=== PATIENT | female | born 1975 | race Two or more races ===

== ENCOUNTER 2018-07-11 05:51 | Inpatient (IN) | payer SELFPAY ==
[2018-07-11] VITALS (9 sets, daily range): BP systolic 104–126; BP diastolic 58–83
[~2018-07-11] VITALS: Ht 162.6 cm; Wt 81.6 kg
--- NOTE | 2018-07-11 06:27 | PHYS DOC ---
Past Medical History Past Medical History: No Pertinent History Past Surgical History: No Surgical History Smoking: Cigarettes (The patient is a nonsmoker.) Alcohol Use: None Adult General Chief Complaint Chief Complaint: ABDOMINAL PAIN HPI HPI Patient is a 42-year-old female who presents to the emergency department for evaluation of lower abdominal discomfort which began yesterday. She has had several episodes of nausea, but no vomiting. She has not had any diarrhea. The pain is described as a burning sensation, and it also feels as if she is constipated but she did have a normal bowel movement yesterday. There are no alleviating or exacerbating factors to her symptoms. She has not had any chest pain or shortness of breath, fevers, chills, vaginal bleeding or discharge, urinary frequency or dysuria. She has not had any chest pain or shortness of breath, numbness or weakness. She is due to start her menstrual cycle tomorrow. The patient is [place]-speaking and history was obtained via script manager language line. Review of Systems Review of Systems Constitutional: Denies fever or chills [] Eyes: Denies change in visual acuity, redness, or eye pain [] HENT: Denies nasal congestion or sore throat [] Respiratory: Denies cough or shortness of breath [] Cardiovascular: The patient denies any shortness of breath, chest pain, palpitations, or orthopnea [] GI: No additional information not addressed in HPI [] : Denies dysuria or hematuria [] Musculoskeletal: Denies back pain or joint pain [] Integument: Denies rash or skin lesions [] Neurologic: Denies headache, focal weakness or sensory changes [] Endocrine: Denies polyuria or polydipsia [] All other systems were reviewed and found to be within normal limits, except as documented in this note. Current Medications Current Medications Current Medications Medications (Trade) Dose Ordered Sig/Rolando Start Time Stop Time Status Last Admin Dose Admin Dextrose/Lactated Ringer's 1,000 ml @ 125 mls/hr 1X ONCE 07/11/18 08:30 07/11/18 16:29 Info (CONTRAST GIVEN -- Rx MONITORING) 1 each PRN DAILY PRN 07/11/18 06:45 07/13/18 06:44 Iohexol (Omnipaque 300 Mg/ml) 75 ml 1X ONCE 07/11/18 07:00 07/11/18 07:01 DC 07/11/18 07:35 75 ML Morphine Sulfate (Morphine Sulfate) 4 mg PRN Q2HR PRN 07/11/18 08:15 07/12/18 08:14 Ondansetron HCl (Zofran) 4 mg PRN Q8HRS PRN 07/11/18 08:15 07/12/18 08:14 Piperacillin Sod/ Tazobactam Sod 3.375 gm/Sodium Chloride 50 ml @ 100 mls/hr 1X ONCE 07/11/18 08:15 07/11/18 08:44 Sodium Chloride 1,000 ml @ 1,000 mls/hr Q1H 07/11/18 07:00 07/11/18 07:59 DC 07/11/18 06:54 1,000 MLS/HR Allergies Allergies Allergies Coded Allergies Type Severity Reaction Last Updated Verified No Known Drug Allergies 07/11/18 No Physical Exam Physical Exam PHYSICAL EXAM: CONSTITUTIONAL: Well developed, well nourished HEAD: normocephalic, atraumatic EENT: PERRL, EOMI. Conjunctivae normal color, sclerae non-icteric; moist mucous membranes. NECK: Supple, non-tender; no meningismus. LUNGS: Lungs CTA, breathing even and unlabored. Normal air movement. HEART: Regular rate and rhythm, no murmur CHEST: No deformity; non-tender ABDOMEN: The abdomen is soft, the upper abdomen is nontender, there is no focal right upper quadrant tenderness to palpation. There is diffuse tenderness to palpation to the lower abdomen, both midline, as well as in the lower quadrants bilaterally, as well as suprapubic tenderness, without rebound or guarding. Normal bowel sounds are present. no masses or bruits. EXTREM: Normal ROM; no deformity, no calf tenderness. Normal pulses palpable in all extremities. There is no pedal edema. SKIN: No rash; no diaphoresis NEURO: Alert; normal speech and cognition; CN's grossly intact; strength grossly intact without focal deficit. BACK: No CVA TTP. PELVIC EXAM: Normal external genitalia. There is a small amount of thin whitish vaginal discharge. The cervix appears mildly inflamed and friable. There is cervical motion tenderness, with diffuse adnexal /suprapubic tenderness to palpation, without focal tenderness or mass. There is also some abdominal tenderness higher to the suprapubic/pelvic area. Exam was performed in the presence of the patient's nurse, Carol. Current Patient Data Vital Signs Vital Signs Date Time Temp Pulse Resp B/P (MAP) Pulse Ox O2 Delivery O2 Flow Rate FiO2 07/11/18 06:53 20 97 Room Air 07/11/18 06:01 97.9 66 154/90 (111) 97.9 Lab Values Laboratory Tests Test 07/11/18 05:55 07/11/18 05:59 07/11/18 06:45 Urine Collection Type Unknown Urine Color Yellow Urine Clarity Clear Urine pH 7.0 Urine Specific [place] 1.015 Urine Protein Negative mg/dL (NEG-TRACE) Urine Glucose (UA) Negative mg/dL (NEG) Urine Ketones (Stick) Negative mg/dL (NEG) Urine Blood Trace (NEG) Urine Nitrite Negative (NEG) Urine Bilirubin Negative (NEG) Urine Urobilinogen Dipstick 0.2 mg/dL (0.2 mg/dL) Urine Leukocyte Esterase Moderate (NEG) Urine RBC 1-2 /HPF (0-2) Urine WBC 11-20 /HPF (0-4) Urine Squamous Epithelial Cells Many /LPF Urine Bacteria Moderate /HPF (0-FEW) Urine Mucus Slight /LPF POC Urine HCG, Qualitative Hcg negative (Negative) White Blood Count 18.0 x10^3/uL (4.0-11.0) H Red Blood Count 4.21 x10^6/uL (3.50-5.40) Hemoglobin 12.5 g/dL (12.0-15.5) Hematocrit 36.9 % (36.0-47.0) Mean Corpuscular Volume 88 fL (79-100) Mean Corpuscular Hemoglobin 30 pg (25-35) Mean Corpuscular Hemoglobin Concent 34 g/dL (31-37) Red Cell Distribution Width 14.0 % (11.5-14.5) Platelet Count 237 x10^3/uL (140-400) Neutrophils (%) (Auto) 78 % (31-73) H Lymphocytes (%) (Auto) 16 % (24-48) L Monocytes (%) (Auto) 4 % (0-9) Eosinophils (%) (Auto) 1 % (0-3) Basophils (%) (Auto) 1 % (0-3) Neutrophils # (Auto) 14.1 x10^3uL (1.8-7.7) H Lymphocytes # (Auto) 2.9 x10^3/uL (1.0-4.8) Monocytes # (Auto) 0.6 x10^3/uL (0.0-1.1) Eosinophils # (Auto) 0.2 x10^3/uL (0.0-0.7) Basophils # (Auto) 0.2 x10^3/uL (0.0-0.2) Segmented Neutrophils % 74 % (35-66) H Band Neutrophils % 2 % (0-9) Lymphocytes % 18 % (24-48) L Monocytes % 5 % (0-10) Eosinophils % 1 % (0-5) Platelet Estimate Adequate (ADEQUATE) Sodium Level 141 mmol/L (136-145) Potassium Level 3.6 mmol/L (3.5-5.1) Chloride Level 103 mmol/L (98-107) Carbon Dioxide Level 29 mmol/L (21-32) Anion Gap 9 (6-14) Blood Urea Nitrogen 8 mg/dL (7-20) Creatinine 0.7 mg/dL (0.6-1.0) Estimated GFR (Cockcroft-Gault) 92.2 BUN/Creatinine Ratio 11 (6-20) Glucose Level 107 mg/dL (70-99) H Calcium Level 9.1 mg/dL (8.5-10.1) Total Bilirubin 0.3 mg/dL (0.2-1.0) Aspartate Amino Transferase (AST) 13 U/L (15-37) L Alanine Aminotransferase (ALT) 27 U/L (14-59) Alkaline Phosphatase 67 U/L (46-116) Total Protein 7.6 g/dL (6.4-8.2) Albumin 3.4 g/dL (3.4-5.0) Albumin/Globulin Ratio 0.8 (1.0-1.7) L Lipase 116 U/L (73-393) Laboratory Tests 07/11/18 06:45 Laboratory Tests 07/11/18 06:45 Microbiology 07/11/18 Wet Prep - Final, Complete WET PREP Final YEAST NONE SEEN TRICHOMONAS NONE SEEN CLUE CELLS NONE SEEN WBCS FEW SQUAMOUS EPS FEW EKG EKG [] Radiology/Procedures Radiology/Procedures [PROCEDURE: CT ABD PELV W/ IV CONTRST ONLY CT of the abdomen and pelvis with contrast, 07/11/2018: HISTORY: Lower abdominal pain, nausea Multidetector CT imaging was performed following an IV bolus injection of iodinated contrast material. No oral contrast material was administered for this study No hepatic abnormality is detected. The gallbladder is unremarkable. The pancreas shows no abnormality. The spleen is of normal size. No renal abnormality is detected. The abdominal aorta is unremarkable. No abdominal or pelvic adenopathy is seen. The uterus is of normal size. The cecum is low-lying in the mid pelvis anteriorly just to the right of midline. A tubular structure extending superiorly from the cecum is compatible with a mildly dilated appendix. It measures 11 mm in width. It contains 2 small echogenic foci compatible with appendicoliths. There is minimal increased density in the periappendiceal fat. Early appendicitis is suspected. The right ureter extends into this region, however, this process does not appear to originate from the ureter. The bowel loops are not dilated. No free air or free fluid is evident in the abdomen or pelvis. IMPRESSION: Mildly dilated appendix containing appendicoliths with mild periappendiceal inflammation suggesting early appendicitis. ] Course & Med Decision Making Course & Med Decision Making Pertinent Labs and Imaging studies reviewed. (See chart for details) [8:10 AM: The patient's condition remained stable. I discussed the case with Dr. Vinson, who will admit the patient and take her to the operating room for definitive treatment.] The patient cannot receive blood products, secondary to her yazdanism beliefs, and this information has been related to the surgeon. Dragon Disclaimer Dragon Disclaimer This electronic medical record was generated, in whole or in part, using a voice recognition dictation system. Departure Departure Impression: Primary Impression: Acute appendicitis Disposition: ADMITTED INPATIENT Condition: STABLE Referrals: NO PCP (PCP) ENA MORGAN MD Jul 11, 2018 06:27
[2018-07-11 06:37] LABS: BILIRUBIN,URINE NEGATIVE (NEG); CLARITY,URINE CLEAR; COLOR,URINE YELLOW; NITRITE,URINE NEGATIVE (NEG); PROTEIN,URINE NEGATIVE (NEG-TRACE); UROBILINOGEN,URINE 0.2 mg/dL (0.2 mg/dL)
[2018-07-11] MEDS ORDERED: CONTRAST GIVEN. MC PRN (06:45)
[2018-07-11 06:48] LABS: BACTERIA,URINE MODERATE /HPF (0-FEW); SQUAMOUS EPITHELIAL CELL,UR MANY /LPF
[2018-07-11] MEDS: MORPHINE SULFATE 4 MG/ML VIAL. IV/SQ PRN ×2 (06:53→08:32)
[2018-07-11 06:56] LABS: BASO # 0.2 x10^3/uL (0.0-0.2); BASO % 1 % (0-3); EOS # 0.2 x10^3/uL (0.0-0.7); EOS % 1 % (0-3); HEMATOCRIT 36.9 % (36.0-47.0); HEMOGLOBIN 12.5 g/dL (12.0-15.5); LYMPH # 2.9 x10^3/uL (1.0-4.8); LYMPH % 16 % (24-48); MEAN CORPUSCULAR HEMOGLOBIN 30 pg (25-35); MEAN CORPUSCULAR HGB CONC 34 g/dL (31-37); MEAN CORPUSCULAR VOLUME 88 fL (79-100); MONO # 0.6 x10^3/uL (0.0-1.1); MONO % 4 % (0-9); NEUT # 14.1 x10^3uL (1.8-7.7); NEUT % 78 % (31-73); PLATELET COUNT 237 x10^3/uL (140-400); RED BLOOD COUNT 4.21 x10^6/uL (3.50-5.40)
[2018-07-11] MEDS ORDERED: IV NORMAL SALINE 1000ML BAG 1,000 ML IV SCH (07:00)
[2018-07-11] MEDS ORDERED: ONDANSETRON PF 4 MG/2 ML VIAL. IV ONE (07:00)
[2018-07-11] MEDS ORDERED: IOHEXOL 300 MG/ML 100ML VIAL. IV ONE (07:00)
[2018-07-11 07:12] LABS: CALCIUM 9.1 mg/dL (8.5-10.1); CREATININE 0.7 mg/dL (0.6-1.0); GFR 92.2; POTASSIUM 3.6 mmol/L (3.5-5.1)
[2018-07-11 07:18] LABS: ALBUMIN 3.4 g/dL (3.4-5.0); ALBUMIN/GLOBULIN RATIO 0.8 (1.0-1.7); TOTAL BILIRUBIN 0.3 mg/dL (0.2-1.0); TOTAL PROTEIN 7.6 g/dL (6.4-8.2)
--- NOTE | 2018-07-11 08:00 | RAD ---
CT of the abdomen and pelvis with contrast, 07/11/2018: HISTORY: Lower abdominal pain, nausea Multidetector CT imaging was performed following an IV bolus injection of iodinated contrast material. No oral contrast material was administered for this study No hepatic abnormality is detected. The gallbladder is unremarkable. The pancreas shows no abnormality. The spleen is of normal size. No renal abnormality is detected. The abdominal aorta is unremarkable. No abdominal or pelvic adenopathy is seen. The uterus is of normal size. The cecum is low-lying in the mid pelvis anteriorly just to the right of midline. A tubular structure extending superiorly from the cecum is compatible with a mildly dilated appendix. It measures 11 mm in width. It contains 2 small echogenic foci compatible with appendicoliths. There is minimal increased density in the periappendiceal fat. Early appendicitis is suspected. The right ureter extends into this region, however, this process does not appear to originate from the ureter. The bowel loops are not dilated. No free air or free fluid is evident in the abdomen or pelvis. IMPRESSION: Mildly dilated appendix containing appendicoliths with mild periappendiceal inflammation suggesting early appendicitis. PQRS Compliance Statement: One or more of the following individualized dose reduction techniques were utilized for this examination: 1. Automated exposure control 2. Adjustment of the mA and/or kV according to patient size 3. Use of iterative reconstruction technique Electronically signed by: Danny Pringle MD (07/11/2018 7:56 AM) [facility]
[2018-07-11 08:13] LABS: % BANDS 2 % (0-9); % EOS 1 % (0-5); % LYMPHS 18 % (24-48); % MONOS 5 % (0-10); % SEGS 74 % (35-66); PLT ESTIMATE ADEQUATE (ADEQUATE)
[2018-07-11] MEDS ORDERED: PIPERACILLIN/TAZOBACTAM 3.375 GM in IV NORMAL SALINE 50ML 50 ML IV ONE (08:15)
[2018-07-11] MEDS ORDERED: ONDANSETRON PF 4 MG/2 ML VIAL. IV PRN ×3 (08:15→15:45)
[2018-07-11] MEDS ORDERED: IV DEXTROSE 5%-LACT RINGERS 1,000 ML IV ONE (08:30)
[2018-07-11] MEDS: MORPHINE SULFATE 4 MG/ML VIAL. IV PRN ×3 (10:47→23:32)
[2018-07-11] MEDS: IV RINGERS,LACTATED 1000ML 1,000 ML IV SCH ×2 (10:51→16:00)
[2018-07-11] MEDS ORDERED: MORPHINE SULFATE 2 MG/ML VIAL. IV PRN ×2 (11:00→15:45)
[2018-07-11] MEDS ORDERED: PROCHLORPERAZINE 10 MG/2 ML VIAL. IV PRN (11:00)
[2018-07-11] MEDS ORDERED: fentaNYL PF VIAL 100 MCG/2 ML VIAL IV PRN ×2 (11:00)
[2018-07-11] MEDS ORDERED: LIDOCAINE 1% PF 2 ML VIAL. ID PRN (11:00)
[2018-07-11] MEDS ORDERED: HYDROmorphone 2 MG/ML VIAL IV PRN (11:00)
[2018-07-11] MEDS ORDERED: MIDAZOLAM HCL/PF 2 MG/2 ML VIAL. ONE (13:50)
[2018-07-11] MEDS ORDERED: SEVOFLURANE 61 TO 120 MINUTES. IH ONE (13:50)
[2018-07-11] MEDS ORDERED: fentaNYL PF VIAL 100 MCG/2 ML VIAL ONE ×2 (13:50→15:41)
[2018-07-11] MEDS ORDERED: GLYCOPYRROLATE 1 MG/5 ML VIAL. ONE ×2 (13:50)
[2018-07-11] MEDS ORDERED: LIDOCAINE 2% PF Vial for OR 5 ML VIAL. ONE (13:50)
[2018-07-11] MEDS ORDERED: KETOROLAC 30 MG/ML INJ FOR OR. INJ ONE (13:51)
[2018-07-11] MEDS ORDERED: DEXAMETHASONE SOD PHOS 20 MG/5 ML VIAL. ONE (13:51)
[2018-07-11] MEDS ORDERED: ONDANSETRON PF 4 MG/2 ML VIAL. ONE (13:51)
[2018-07-11] MEDS ORDERED: PROPOFOL 20 ML IV ONE (13:51)
[2018-07-11] MEDS ORDERED: BUPIVAC MPF-EPI 0.5%-1:200000 30 ML VIAL. ONE (14:09)
--- NOTE | 2018-07-11 14:16 | PDOC1 ---
History and Physical Date of Admission Date of Admission DATE: 07/11/18 TIME: 14:11 Identification/Chief Complaint Chief Complaint RLQ abd pain Source Source: Chart review, Patient History of Present Illness History of Present Illness 42 yo F with abd pain, localizing RLQ. No previous episode. Positive fever. Normal bowel function. Past Medical History Past Medical History pt is rastafari and elects for no blood products Cardiovascular: No pertinent hx Past Surgical History Past Surgical History: No pertinent history Family History Family History: No Significant Social History Smoke: No ALCOHOL: none Current Problem List Problem List Problems Medical Problems: (1) Acute appendicitis Status: Acute Current Medications Current Medications Current Medications Morphine Sulfate (Morphine Sulfate) 4 mg PRN Q15MIN PRN IV/SQ PAIN GREATER THAN 3/10 Last administered on 07/11/18at 08:32; Start 07/11/18 at 06:30; Stop 07/12/18 at 06:29 Sodium Chloride 1,000 ml @ 1,000 mls/hr Q1H IV Last administered on at 06:54; Start 07/11/18 at 07:00; Stop 07/11/18 at 07:59; Status DC Ondansetron HCl (Zofran) 4 mg 1X ONCE IV Last administered on 07/11/18at 06:53 ; Start 07/11/18 at 07:00; Stop 07/11/18 at 07:01; Status DC Iohexol (Omnipaque 300 Mg/ml) 75 ml 1X ONCE IV Last administered on at 07:35; Start 07/11/18 at 07:00; Stop 07/11/18 at 07:01; Status DC Info (CONTRAST GIVEN -- Rx MONITORING) 1 each PRN DAILY PRN MC SEE COMMENTS; Start 07/11/18 at 06:45; Stop 07/13/18 at 06:44 Piperacillin Sod/ Tazobactam Sod 3.375 gm/Sodium Chloride 50 ml @ 100 mls/hr 1X ONCE IV Last administered on 07/11/18at 08:28; Start 07/11/18 at 08:15; Stop 07/11/18 at 08:44; Status DC Ondansetron HCl (Zofran) 4 mg PRN Q8HRS PRN IV NAUSEA/VOMITING; Start at 08:15; Stop 07/12/18 at 08:14 Morphine Sulfate (Morphine Sulfate) 4 mg PRN Q2HR PRN IV PAIN Last administered on 07/11/18at 10:47; Start 07/11/18 at 08:15; Stop 07/12/18 at 08 :14 Dextrose/Lactated Ringer's 1,000 ml @ 125 mls/hr 1X ONCE IV Last administered on 07/11/18at 08:28; Start 07/11/18 at 08:30; Stop 07/11/18 at 16 :29 Piperacillin Sod/ Tazobactam Sod 3.375 gm/Dextrose 50 ml @ 100 mls/hr Q6HRS IV ; Start 07/11/18 at 12:00 Ondansetron HCl (Zofran) 4 mg PRN Q6HRS PRN IV NAUSEA/VOMITING; Start at 11:00; Stop 07/12/18 at 10:59 Fentanyl Citrate (Fentanyl 2ml Vial) 25 mcg PRN Q5MIN PRN IV MILD PAIN; Start 07/11/18 at 11:00; Stop 07/12/18 at 10:59 Fentanyl Citrate (Fentanyl 2ml Vial) 50 mcg PRN Q5MIN PRN IV MODERATE TO SEVERE PAIN; Start 07/11/18 at 11:00; Stop 07/12/18 at 10:59 Morphine Sulfate (Morphine Sulfate) 1 mg PRN Q10MIN PRN IV SEVERE PAIN; Start 07/11/18 at 11:00; Stop 07/12/18 at 10:59 Ringer's Solution 1,000 ml @ 30 mls/hr Q24H IV ; Start 07/11/18 at 10:51; Stop 07/11/18 at 22:50 Lidocaine HCl (Xylocaine-Mpf 1% 2ml Vial) 2 ml 1X PRN PRN ID IV START; Start 07/11/18 at 11:00; Stop 07/12/18 at 10:59 Hydromorphone HCl (Dilaudid) 0.5 mg PRN Q10MIN PRN IV SEV PAIN, Second choice; Start 07/11/18 at 11:00; Stop 07/12/18 at 10:59 Prochlorperazine Edisylate (Compazine) 5 mg PACU PRN PRN IV NAUSEA, MRX1; Start 07/11/18 at 11:00; Stop 07/12/18 at 10:59 Glycopyrrolate (Robinul) 1 mg STK-MED ONCE .ROUTE ; Start 07/11/18 at 13:50; Stop 07/11/18 at 13:51; Status DC Sevoflurane (Ultane) 60 ml STK-MED ONCE IH ; Start 07/11/18 at 13:50; Stop at 13:51; Status DC Fentanyl Citrate (Fentanyl 2ml Vial) 100 mcg STK-MED ONCE .ROUTE ; Start at 13:50; Stop 07/11/18 at 13:51; Status DC Midazolam HCl (Versed) 2 mg STK-MED ONCE .ROUTE ; Start 07/11/18 at 13:50; Stop 07/11/18 at 13:51; Status DC Glycopyrrolate (Robinul) 1 mg STK-MED ONCE .ROUTE ; Start 07/11/18 at 13:50; Stop 07/11/18 at 13:51; Status DC Lidocaine HCl (Lidocaine Pf 2% Vial) 5 ml STK-MED ONCE .ROUTE ; Start 07/11/18 at 13:50; Stop 07/11/18 at 13:51; Status DC Propofol 20 ml @ As Directed STK-MED ONCE IV ; Start 07/11/18 at 13:51; Stop 07/11/18 at 13:52; Status DC Dexamethasone Sodium Phosphate (Decadron) 20 mg STK-MED ONCE .ROUTE ; Start at 13:51; Stop 07/11/18 at 13:52; Status DC Ketorolac Tromethamine (Toradol For Or Only) 30 mg STK-MED ONCE INJ ; Start at 13:51; Stop 07/11/18 at 13:52; Status DC Ondansetron HCl (Zofran) 4 mg STK-MED ONCE .ROUTE ; Start 07/11/18 at 13:51; Stop 07/11/18 at 13:52; Status DC Bupivacaine HCl/ Epinephrine Bitart (Sensorcain-Mpf Epi 0.5%-1:[id number]) 30 ml STK -MED ONCE .ROUTE ; Start 07/11/18 at 14:09; Stop 07/11/18 at 14:10; Status DC Allergies Allergies: Coded Allergies: No Known Drug Allergies (Unverified , 07/11/18) ROS Gastrointestinal: Yes Abdominal Pain Physical Exam General: Alert, Oriented X3, Cooperative, moderate distress HEENT: Atraumatic Lungs: Normal air movement Abdomen: Soft, Other (TTP RLQ) Rectal Exam: not examined Extremities: No clubbing, No cyanosis Skin: No rashes, No breakdown Neuro: Normal speech, Sensation intact Psych/Mental Status: Mental status NL, Mood NL Vitals Vitals Vital Signs Date Time Temp Pulse Resp B/P (MAP) Pulse Ox O2 Delivery O2 Flow Rate FiO2 07/11/18 13:24 100.1 109 20 141/76 97 Room Air 100.1 Labs Labs Laboratory Tests Test 07/11/18 05:55 07/11/18 05:59 07/11/18 06:45 Urine Collection Type Unknown Urine Color Yellow Urine Clarity Clear Urine pH 7.0 Urine Specific [place] 1.015 Urine Protein Negative mg/dL (NEG-TRACE) Urine Glucose (UA) Negative mg/dL (NEG) Urine Ketones (Stick) Negative mg/dL (NEG) Urine Blood Trace (NEG) Urine Nitrite Negative (NEG) Urine Bilirubin Negative (NEG) Urine Urobilinogen Dipstick 0.2 mg/dL (0.2 mg/dL) Urine Leukocyte Esterase Moderate (NEG) Urine RBC 1-2 /HPF (0-2) Urine WBC 11-20 /HPF (0-4) Urine Squamous Epithelial Cells Many /LPF Urine Bacteria Moderate /HPF (0-FEW) Urine Mucus Slight /LPF Bedside Urine HCG, Qualitative Hcg negative (Negative) White Blood Count 18.0 x10^3/uL (4.0-11.0) Red Blood Count 4.21 x10^6/uL (3.50-5.40) Hemoglobin 12.5 g/dL (12.0-15.5) Hematocrit 36.9 % (36.0-47.0) Mean Corpuscular Volume 88 fL (79-100) Mean Corpuscular Hemoglobin 30 pg (25-35) Mean Corpuscular Hemoglobin Concent 34 g/dL (31-37) Red Cell Distribution Width 14.0 % (11.5-14.5) Platelet Count 237 x10^3/uL (140-400) Neutrophils (%) (Auto) 78 % (31-73) Lymphocytes (%) (Auto) 16 % (24-48) Monocytes (%) (Auto) 4 % (0-9) Eosinophils (%) (Auto) 1 % (0-3) Basophils (%) (Auto) 1 % (0-3) Neutrophils # (Auto) 14.1 x10^3uL (1.8-7.7) Lymphocytes # (Auto) 2.9 x10^3/uL (1.0-4.8) Monocytes # (Auto) 0.6 x10^3/uL (0.0-1.1) Eosinophils # (Auto) 0.2 x10^3/uL (0.0-0.7) Basophils # (Auto) 0.2 x10^3/uL (0.0-0.2) Segmented Neutrophils % 74 % (35-66) Band Neutrophils % 2 % (0-9) Lymphocytes % 18 % (24-48) Monocytes % 5 % (0-10) Eosinophils % 1 % (0-5) Platelet Estimate Adequate (ADEQUATE) Sodium Level 141 mmol/L (136-145) Potassium Level 3.6 mmol/L (3.5-5.1) Chloride Level 103 mmol/L (98-107) Carbon Dioxide Level 29 mmol/L (21-32) Anion Gap 9 (6-14) Blood Urea Nitrogen 8 mg/dL (7-20) Creatinine 0.7 mg/dL (0.6-1.0) Estimated GFR (Cockcroft-Gault) 92.2 BUN/Creatinine Ratio 11 (6-20) Glucose Level 107 mg/dL (70-99) Calcium Level 9.1 mg/dL (8.5-10.1) Total Bilirubin 0.3 mg/dL (0.2-1.0) Aspartate Amino Transf (AST/SGOT) 13 U/L (15-37) Alanine Aminotransferase (ALT/SGPT) 27 U/L (14-59) Alkaline Phosphatase 67 U/L (46-116) Total Protein 7.6 g/dL (6.4-8.2) Albumin 3.4 g/dL (3.4-5.0) Albumin/Globulin Ratio 0.8 (1.0-1.7) Lipase 116 U/L (73-393) Laboratory Tests Test 07/11/18 05:55 07/11/18 05:59 07/11/18 06:45 Urine Collection Type Unknown Urine Color Yellow Urine Clarity Clear Urine pH 7.0 Urine Specific [place] 1.015 Urine Protein Negative mg/dL (NEG-TRACE) Urine Glucose (UA) Negative mg/dL (NEG) Urine Ketones (Stick) Negative mg/dL (NEG) Urine Blood Trace (NEG) Urine Nitrite Negative (NEG) Urine Bilirubin Negative (NEG) Urine Urobilinogen Dipstick 0.2 mg/dL (0.2 mg/dL) Urine Leukocyte Esterase Moderate (NEG) Urine RBC 1-2 /HPF (0-2) Urine WBC 11-20 /HPF (0-4) Urine Squamous Epithelial Cells Many /LPF Urine Bacteria Moderate /HPF (0-FEW) Urine Mucus Slight /LPF Bedside Urine HCG, Qualitative Hcg negative (Negative) White Blood Count 18.0 x10^3/uL (4.0-11.0) Red Blood Count 4.21 x10^6/uL (3.50-5.40) Hemoglobin 12.5 g/dL (12.0-15.5) Hematocrit 36.9 % (36.0-47.0) Mean Corpuscular Volume 88 fL (79-100) Mean Corpuscular Hemoglobin 30 pg (25-35) Mean Corpuscular Hemoglobin Concent 34 g/dL (31-37) Red Cell Distribution Width 14.0 % (11.5-14.5) Platelet Count 237 x10^3/uL (140-400) Neutrophils (%) (Auto) 78 % (31-73) Lymphocytes (%) (Auto) 16 % (24-48) Monocytes (%) (Auto) 4 % (0-9) Eosinophils (%) (Auto) 1 % (0-3) Basophils (%) (Auto) 1 % (0-3) Neutrophils # (Auto) 14.1 x10^3uL (1.8-7.7) Lymphocytes # (Auto) 2.9 x10^3/uL (1.0-4.8) Monocytes # (Auto) 0.6 x10^3/uL (0.0-1.1) Eosinophils # (Auto) 0.2 x10^3/uL (0.0-0.7) Basophils # (Auto) 0.2 x10^3/uL (0.0-0.2) Segmented Neutrophils % 74 % (35-66) Band Neutrophils % 2 % (0-9) Lymphocytes % 18 % (24-48) Monocytes % 5 % (0-10) Eosinophils % 1 % (0-5) Platelet Estimate Adequate (ADEQUATE) Sodium Level 141 mmol/L (136-145) Potassium Level 3.6 mmol/L (3.5-5.1) Chloride Level 103 mmol/L (98-107) Carbon Dioxide Level 29 mmol/L (21-32) Anion Gap 9 (6-14) Blood Urea Nitrogen 8 mg/dL (7-20) Creatinine 0.7 mg/dL (0.6-1.0) Estimated GFR (Cockcroft-Gault) 92.2 BUN/Creatinine Ratio 11 (6-20) Glucose Level 107 mg/dL (70-99) Calcium Level 9.1 mg/dL (8.5-10.1) Total Bilirubin 0.3 mg/dL (0.2-1.0) Aspartate Amino Transf (AST/SGOT) 13 U/L (15-37) Alanine Aminotransferase (ALT/SGPT) 27 U/L (14-59) Alkaline Phosphatase 67 U/L (46-116) Total Protein 7.6 g/dL (6.4-8.2) Albumin 3.4 g/dL (3.4-5.0) Albumin/Globulin Ratio 0.8 (1.0-1.7) Lipase 116 U/L (73-393) Images Images CT c/w appendicitis VTE Prophylaxis Ordered VTE Prophylaxis Devices: Yes VTE Pharmacological Prophylaxi: Contraindicated Assessment/Plan Assessment/Plan Appendicitis IV abx started. TO OR for laparoscopic appendectomy. R/R/B/A d/w pt and pt's supportive family. Risks, including, but not limited to: bleeding, infection, damage to surrounding structures, risk of anesthesia, risk of open. They appear to understand, their questions are answered and they elect to proceed. ERICA BATRES MD Jul 11, 2018 14:16
[2018-07-11] MEDS: PIPERACILLIN/TAZOBACTAM 3.375 GM in IV DEXTROSE 5% 50 ML IV SCH ×3 (14:31→23:29)
[2018-07-11] MEDS ORDERED: NEOSTIGMINE 10 MG/10 ML VIAL. ONE (14:36)
--- NOTE | 2018-07-11 15:42 | PDOC4 ---
OPERATIVE NOTE Date: Date: Jul 11, 2018 Pre-Op Diagnosis: Appendicitis Post-Op Diagnosis: same, perforated Procedure Performed: laparoscopic appendectomy Surgeon: Lb Batres Anesthesia Type: GETA plus local Blood Loss: 50 Specimans Obtained: appendix Findings: Perforated appendix near base with extrusion of stool, some chronic adhesions to right colon, ilene esthela elizabeth adhesions (minimal), adhesions of uterus and gynecological structures. Complications: none Operative Note: After obtaining informed consent, patient was taken to OR and induced under GETA and prepped in the usual fashion. 5 mm port placed LLQ and suprapubic, 12 port placed umbilical, all under laparoscopic guidance. Abdominal cavity was explored and above findings noted. Adhesions around gynecological structures freed up. Appendix bluntly dissected out. Mesoappendix essentially nonexistent and what little there was was controlled with clips. Appendix was amputated at level of cecum above area of perforation. Extruded stool evacuated out. Appendix was placed in bag, delivered and sent to pathology. Copious irrigation. No evidence of bleeding or other pathology. Ports removed without bleeding. Fascia repaired with 0 vicryl. Skin repaired with 4 0 monocryl. Dressing applied. Patient tolerated procedure well and sent to PACU in stable condition. All counts correct. Wound class is 4, dirty. ERICA BATRES MD Jul 11, 2018 15:42
[2018-07-11] MEDS ORDERED: 0.9 % SODIUM CHLORIDE 10 ML DISP.SYRIN. IV PRN (15:45)
[2018-07-11] MEDS: DOCUSATE SODIUM 100 MG CAPSULE. PO SCH (20:37)
[2018-07-11] MEDS: HYDROcodone/APAP 5/325MG 1 TAB TABLET PO PRN (20:37)
[2018-07-11] MEDS: KETOROLAC 15 MG/ML VIAL. IV PRN (20:38)
[2018-07-11] MEDS: HEPARIN for SUB-Q USE 5,000 UNIT/ML VIAL. SQ SCH (20:43)
[2018-07-12 03:00] VITALS: BP 114/68
[2018-07-12] MEDS: IV RINGERS,LACTATED 1000ML 1,000 ML IV SCH ×3 (03:06→22:00)
[2018-07-12] MEDS: HYDROcodone/APAP 5/325MG 1 TAB TABLET PO PRN ×3 (04:05→20:38)
[2018-07-12] MEDS: KETOROLAC 15 MG/ML VIAL. IV PRN ×3 (05:42→23:10)
[2018-07-12] MEDS: PIPERACILLIN/TAZOBACTAM 3.375 GM in IV DEXTROSE 5% 50 ML IV SCH ×3 (05:43→18:18)
[2018-07-12 06:23] LABS: BASO % 0 % (0-3); EOS % 0 % (0-3); HEMATOCRIT 31.6 % (36.0-47.0); HEMOGLOBIN 10.7 g/dL (12.0-15.5); LYMPH # 1.2 x10^3/uL (1.0-4.8); LYMPH % 6 % (24-48); MEAN CORPUSCULAR HEMOGLOBIN 30 pg (25-35); MEAN CORPUSCULAR HGB CONC 34 g/dL (31-37); MEAN CORPUSCULAR VOLUME 88 fL (79-100); MONO # 0.8 x10^3/uL (0.0-1.1); MONO % 4 % (0-9); NEUT # 18.7 x10^3uL (1.8-7.7); NEUT % 90 % (31-73); PLATELET COUNT 203 x10^3/uL (140-400); RED BLOOD COUNT 3.61 x10^6/uL (3.50-5.40); RED CELL DISTRIBUTION WIDTH 14.3 % (11.5-14.5); WHITE BLOOD COUNT 20.7 x10^3/uL (4.0-11.0)
[2018-07-12 07:00] VITALS: BP 112/66
[2018-07-12] MEDS: HEPARIN for SUB-Q USE 5,000 UNIT/ML VIAL. SQ SCH ×2 (09:00→20:42)
[2018-07-12] MEDS: DOCUSATE SODIUM 100 MG CAPSULE. PO SCH ×2 (09:26→20:38)
[2018-07-12 11:00] VITALS: BP 92/54
--- NOTE | 2018-07-12 11:44 | PDOC ---
SURGICAL PROGRESS NOTE Subjective pain incisional no emesis Vital Signs Vital Signs Date Time Temp Pulse Resp B/P (MAP) Pulse Ox O2 Delivery O2 Flow Rate FiO2 07/12/18 11:00 97.6 89 18 92/54 (67) 96 Room Air 97.6 07/11/18 15:43 6 I&O Intake and Output 07/12/18 07:00 Intake Total 1950 ml Output Total 125 ml Balance 1825 ml Intake Oral 0 ml IV Total 1950 ml Output Urine Total 100 ml Estimated Blood Loss 25 ml # Voids 3 General: Alert, Oriented X3, Cooperative, No acute distress Abdomen: Soft, Other (TTP lap sites ) Labs Laboratory Tests Test 07/11/18 05:55 07/11/18 05:59 07/11/18 06:45 07/12/18 05:35 Urine Collection Type Unknown Urine Color Yellow Urine Clarity Clear Urine pH 7.0 Urine Specific [place] 1.015 Urine Protein Negative mg/dL (NEG-TRACE) Urine Glucose (UA) Negative mg/dL (NEG) Urine Ketones (Stick) Negative mg/dL (NEG) Urine Blood Trace (NEG) Urine Nitrite Negative (NEG) Urine Bilirubin Negative (NEG) Urine Urobilinogen Dipstick 0.2 mg/dL (0.2 mg/dL) Urine Leukocyte Esterase Moderate (NEG) Urine RBC 1-2 /HPF (0-2) Urine WBC 11-20 /HPF (0-4) Urine Squamous Epithelial Cells Many /LPF Urine Bacteria Moderate /HPF (0-FEW) Urine Mucus Slight /LPF Bedside Urine HCG, Qualitative Hcg negative (Negative) White Blood Count 18.0 x10^3/uL (4.0-11.0) 20.7 x10^3/uL (4.0-11.0) Red Blood Count 4.21 x10^6/uL (3.50-5.40) 3.61 x10^6/uL (3.50-5.40) Hemoglobin 12.5 g/dL (12.0-15.5) 10.7 g/dL (12.0-15.5) Hematocrit 36.9 % (36.0-47.0) 31.6 % (36.0-47.0) Mean Corpuscular Volume 88 fL (79-100) 88 fL (79-100) Mean Corpuscular Hemoglobin 30 pg (25-35) 30 pg (25-35) Mean Corpuscular Hemoglobin Concent 34 g/dL (31-37) 34 g/dL (31-37) Red Cell Distribution Width 14.0 % (11.5-14.5) 14.3 % (11.5-14.5) Platelet Count 237 x10^3/uL (140-400) 203 x10^3/uL (140-400) Neutrophils (%) (Auto) 78 % (31-73) 90 % (31-73) Lymphocytes (%) (Auto) 16 % (24-48) 6 % (24-48) Monocytes (%) (Auto) 4 % (0-9) 4 % (0-9) Eosinophils (%) (Auto) 1 % (0-3) 0 % (0-3) Basophils (%) (Auto) 1 % (0-3) 0 % (0-3) Neutrophils # (Auto) 14.1 x10^3uL (1.8-7.7) 18.7 x10^3uL (1.8-7.7) Lymphocytes # (Auto) 2.9 x10^3/uL (1.0-4.8) 1.2 x10^3/uL (1.0-4.8) Monocytes # (Auto) 0.6 x10^3/uL (0.0-1.1) 0.8 x10^3/uL (0.0-1.1) Eosinophils # (Auto) 0.2 x10^3/uL (0.0-0.7) 0.0 x10^3/uL (0.0-0.7) Basophils # (Auto) 0.2 x10^3/uL (0.0-0.2) 0.0 x10^3/uL (0.0-0.2) Segmented Neutrophils % 74 % (35-66) Band Neutrophils % 2 % (0-9) Lymphocytes % 18 % (24-48) Monocytes % 5 % (0-10) Eosinophils % 1 % (0-5) Platelet Estimate Adequate (ADEQUATE) Sodium Level 141 mmol/L (136-145) Potassium Level 3.6 mmol/L (3.5-5.1) Chloride Level 103 mmol/L (98-107) Carbon Dioxide Level 29 mmol/L (21-32) Anion Gap 9 (6-14) Blood Urea Nitrogen 8 mg/dL (7-20) Creatinine 0.7 mg/dL (0.6-1.0) Estimated GFR (Cockcroft-Gault) 92.2 BUN/Creatinine Ratio 11 (6-20) Glucose Level 107 mg/dL (70-99) Calcium Level 9.1 mg/dL (8.5-10.1) Total Bilirubin 0.3 mg/dL (0.2-1.0) Aspartate Amino Transf (AST/SGOT) 13 U/L (15-37) Alanine Aminotransferase (ALT/SGPT) 27 U/L (14-59) Alkaline Phosphatase 67 U/L (46-116) Total Protein 7.6 g/dL (6.4-8.2) Albumin 3.4 g/dL (3.4-5.0) Albumin/Globulin Ratio 0.8 (1.0-1.7) Lipase 116 U/L (73-393) Laboratory Tests Test 07/12/18 05:35 White Blood Count 20.7 x10^3/uL (4.0-11.0) Red Blood Count 3.61 x10^6/uL (3.50-5.40) Hemoglobin 10.7 g/dL (12.0-15.5) Hematocrit 31.6 % (36.0-47.0) Mean Corpuscular Volume 88 fL (79-100) Mean Corpuscular Hemoglobin 30 pg (25-35) Mean Corpuscular Hemoglobin Concent 34 g/dL (31-37) Red Cell Distribution Width 14.3 % (11.5-14.5) Platelet Count 203 x10^3/uL (140-400) Neutrophils (%) (Auto) 90 % (31-73) Lymphocytes (%) (Auto) 6 % (24-48) Monocytes (%) (Auto) 4 % (0-9) Eosinophils (%) (Auto) 0 % (0-3) Basophils (%) (Auto) 0 % (0-3) Neutrophils # (Auto) 18.7 x10^3uL (1.8-7.7) Lymphocytes # (Auto) 1.2 x10^3/uL (1.0-4.8) Monocytes # (Auto) 0.8 x10^3/uL (0.0-1.1) Eosinophils # (Auto) 0.0 x10^3/uL (0.0-0.7) Basophils # (Auto) 0.0 x10^3/uL (0.0-0.2) Problem List Problems Medical Problems: (1) Acute appendicitis Status: Acute Assessment/Plan s/p appy, perf wbc 20 continue abx ANNELISE MAIN P[employer]LTRY C[employer]ER Jul 12, 2018 11:44
[2018-07-12 15:00] VITALS: BP 107/65
[2018-07-12 19:00] VITALS: BP 111/66
[2018-07-12] MEDS: LACTOBACILLUS RHAMNOSUS GG 1 CAPSULE. PO SCH (20:38)
[2018-07-12 23:00] VITALS: BP 98/53
[2018-07-13] MEDS: PIPERACILLIN/TAZOBACTAM 3.375 GM in IV DEXTROSE 5% 50 ML IV SCH ×5 (00:26→23:36)
[2018-07-13 03:00] VITALS: BP 108/60
[2018-07-13] MEDS: KETOROLAC 15 MG/ML VIAL. IV PRN ×2 (06:37→12:38)
[2018-07-13 07:00] VITALS: BP 115/71
[2018-07-13 07:11] LABS: BASO # 0.1 x10^3/uL (0.0-0.2); BASO % 0 % (0-3); EOS % 0 % (0-3); HEMATOCRIT 30.8 % (36.0-47.0); HEMOGLOBIN 10.4 g/dL (12.0-15.5); LYMPH # 2.1 x10^3/uL (1.0-4.8); LYMPH % 12 % (24-48); MEAN CORPUSCULAR HEMOGLOBIN 30 pg (25-35); MEAN CORPUSCULAR HGB CONC 34 g/dL (31-37); MEAN CORPUSCULAR VOLUME 88 fL (79-100); MONO # 0.6 x10^3/uL (0.0-1.1); MONO % 4 % (0-9); NEUT # 15.4 x10^3uL (1.8-7.7); NEUT % 85 % (31-73); PLATELET COUNT 197 x10^3/uL (140-400); RED BLOOD COUNT 3.49 x10^6/uL (3.50-5.40); RED CELL DISTRIBUTION WIDTH 14.8 % (11.5-14.5); WHITE BLOOD COUNT 18.2 x10^3/uL (4.0-11.0)
[2018-07-13] MEDS: LACTOBACILLUS RHAMNOSUS GG 1 CAPSULE. PO SCH ×2 (08:26→21:30)
[2018-07-13] MEDS: DOCUSATE SODIUM 100 MG CAPSULE. PO SCH ×2 (08:26→21:30)
[2018-07-13] MEDS: HEPARIN for SUB-Q USE 5,000 UNIT/ML VIAL. SQ SCH ×2 (08:29→21:31)
[2018-07-13] MEDS ORDERED: IV RINGERS,LACTATED 500ML 500 ML IV ONE (08:30)
[2018-07-13] MEDS: HYDROcodone/APAP 5/325MG 1 TAB TABLET PO PRN ×3 (09:48→19:27)
[2018-07-13 11:00] VITALS: BP 129/79
[2018-07-13] MEDS: IV RINGERS,LACTATED 1000ML 1,000 ML IV SCH ×2 (12:34→17:16)
--- NOTE | 2018-07-13 12:58 | PDOC ---
SURGICAL PROGRESS NOTE Subjective feels fatigued more bloating today no flatus Vital Signs Vital Signs Date Time Temp Pulse Resp B/P (MAP) Pulse Ox O2 Delivery O2 Flow Rate FiO2 07/13/18 11:00 99.2 94 18 129/79 (96) 94 Room Air 99.2 I&O Intake and Output 07/13/18 07:00 Intake Total 1620 ml Balance 1620 ml Intake Oral 1620 ml # Voids 8 General: Alert, Oriented X3, Cooperative, No acute distress Abdomen: Soft, Other (distended, ttp on exam) Labs Laboratory Tests Test 07/12/18 05:35 07/13/18 06:15 White Blood Count 20.7 x10^3/uL (4.0-11.0) 18.2 x10^3/uL (4.0-11.0) Red Blood Count 3.61 x10^6/uL (3.50-5.40) 3.49 x10^6/uL (3.50-5.40) Hemoglobin 10.7 g/dL (12.0-15.5) 10.4 g/dL (12.0-15.5) Hematocrit 31.6 % (36.0-47.0) 30.8 % (36.0-47.0) Mean Corpuscular Volume 88 fL (79-100) 88 fL (79-100) Mean Corpuscular Hemoglobin 30 pg (25-35) 30 pg (25-35) Mean Corpuscular Hemoglobin Concent 34 g/dL (31-37) 34 g/dL (31-37) Red Cell Distribution Width 14.3 % (11.5-14.5) 14.8 % (11.5-14.5) Platelet Count 203 x10^3/uL (140-400) 197 x10^3/uL (140-400) Neutrophils (%) (Auto) 90 % (31-73) 85 % (31-73) Lymphocytes (%) (Auto) 6 % (24-48) 12 % (24-48) Monocytes (%) (Auto) 4 % (0-9) 4 % (0-9) Eosinophils (%) (Auto) 0 % (0-3) 0 % (0-3) Basophils (%) (Auto) 0 % (0-3) 0 % (0-3) Neutrophils # (Auto) 18.7 x10^3uL (1.8-7.7) 15.4 x10^3uL (1.8-7.7) Lymphocytes # (Auto) 1.2 x10^3/uL (1.0-4.8) 2.1 x10^3/uL (1.0-4.8) Monocytes # (Auto) 0.8 x10^3/uL (0.0-1.1) 0.6 x10^3/uL (0.0-1.1) Eosinophils # (Auto) 0.0 x10^3/uL (0.0-0.7) 0.0 x10^3/uL (0.0-0.7) Basophils # (Auto) 0.0 x10^3/uL (0.0-0.2) 0.1 x10^3/uL (0.0-0.2) Laboratory Tests Test 07/13/18 06:15 White Blood Count 18.2 x10^3/uL (4.0-11.0) Red Blood Count 3.49 x10^6/uL (3.50-5.40) Hemoglobin 10.4 g/dL (12.0-15.5) Hematocrit 30.8 % (36.0-47.0) Mean Corpuscular Volume 88 fL (79-100) Mean Corpuscular Hemoglobin 30 pg (25-35) Mean Corpuscular Hemoglobin Concent 34 g/dL (31-37) Red Cell Distribution Width 14.8 % (11.5-14.5) Platelet Count 197 x10^3/uL (140-400) Neutrophils (%) (Auto) 85 % (31-73) Lymphocytes (%) (Auto) 12 % (24-48) Monocytes (%) (Auto) 4 % (0-9) Eosinophils (%) (Auto) 0 % (0-3) Basophils (%) (Auto) 0 % (0-3) Neutrophils # (Auto) 15.4 x10^3uL (1.8-7.7) Lymphocytes # (Auto) 2.1 x10^3/uL (1.0-4.8) Monocytes # (Auto) 0.6 x10^3/uL (0.0-1.1) Eosinophils # (Auto) 0.0 x10^3/uL (0.0-0.7) Basophils # (Auto) 0.1 x10^3/uL (0.0-0.2) Problem List Problems Medical Problems: (1) Acute appendicitis Status: Acute Assessment/Plan s/p perf appy trend labs, fevers, clinical exam high risk for abscess continue abx back off diet, await bowel function, increase activity ANNELISE MAIN CARD PLACER Jul 13, 2018 12:58
[2018-07-13 15:00] VITALS: BP 128/82
--- NOTE | 2018-07-13 15:09 | PATHOLOGY ---
[facility] Accession Number: [id number] . 01 Material submitted: . APPENDIX . 01 Clinical history: . Acute appendicitis. . 02 Diagnosis: Appendix, "appendix, appendectomy": - Acute suppurative appendicitis. (SHA:[facility]; 07/13/2018) QMS/07/13/2018 . 02 Electronically signed: . Vishnu Gardiner MD, Pathologist NPI- [id number] . 01 Gross description: . Received in formalin labeled "Lucila, Miriam, appendix" is an appendectomy specimen measuring 3.6 cm in length and 1.1 cm in diameter. There is a scant portion of yellow-york attached mesoappendix measuring 2.1 x 1.0 x 0.2 cm. The proximal margin is received open with an adjacent staple line. The serosa is york-white with purulent exudate at the distal tip over a 1.2 x 0.6 cm area and diffuse areas of hemorrhage. The luminal diameter measures 0.3 cm. No fecaliths are identified. Patient Assistant sections are submitted in cassette A1, with the margin inked black. ([facility] [place] SYC/SYC . 02 Pathologist provided ICD-10: K35.80 . 02 CPT . 771446 Specimen Comment: A courtesy copy of this report has been sent to Specimen Comment: [phone], . Specimen Comment: Report sent to / DR MORGAN Specimen Comment: A duplicate report has been generated due to demographic updates. Performed at: [address], [place], [place] [id number] MD Ash Pineda MD Phone: [phone] Performed at: 02 [facility] [address], [place] [id number] MD Luan Hurtado MD Phone: [phone]
[2018-07-13 19:00] VITALS: BP 135/79
[2018-07-13] MEDS ORDERED: IV NORMAL SALINE 500ML BAG 500 ML IV ONE (20:00)
[2018-07-13] MEDS: ACETAMINOPHEN 500 MG TABLET PO PRN (20:36)
[2018-07-13 21:11] LABS: GC PROBE Negative (Negative)
[2018-07-13 23:00] VITALS: BP 129/77
[2018-07-14 03:00] VITALS: BP 133/90
[2018-07-14] MEDS: IV RINGERS,LACTATED 1000ML 1,000 ML IV SCH ×2 (04:52→15:46)
[2018-07-14] MEDS: PIPERACILLIN/TAZOBACTAM 3.375 GM in IV DEXTROSE 5% 50 ML IV SCH ×3 (05:54→18:00)
[2018-07-14] MEDS: ACETAMINOPHEN 500 MG TABLET PO PRN (06:25)
[2018-07-14 07:00] VITALS: BP 122/77
[2018-07-14] MEDS: DOCUSATE SODIUM 100 MG CAPSULE. PO SCH ×2 (08:16→21:50)
[2018-07-14] MEDS: LACTOBACILLUS RHAMNOSUS GG 1 CAPSULE. PO SCH ×2 (08:16→21:51)
[2018-07-14] MEDS: HEPARIN for SUB-Q USE 5,000 UNIT/ML VIAL. SQ SCH ×2 (08:20→21:54)
[2018-07-14] MEDS: HYDROcodone/APAP 5/325MG 1 TAB TABLET PO PRN (08:21)
[2018-07-14 11:00] VITALS: BP 135/87
--- NOTE | 2018-07-14 11:02 | PDOC ---
SURGICAL PROGRESS NOTE Subjective Pt reports feeling better, benjy clears, pain controlled Vital Signs Vital Signs Date Time Temp Pulse Resp B/P (MAP) Pulse Ox O2 Delivery O2 Flow Rate FiO2 07/14/18 08:25 Room Air 07/14/18 08:21 92 6.0 07/14/18 07:00 98.1 98 16 122/77 (92) 98.1 I&O Intake and Output 07/14/18 07:00 Intake Total 550 ml Balance 550 ml Intake Oral 500 ml IV Total 50 ml # Voids 2 General: Alert, Oriented X3, Cooperative, No acute distress Abdomen: Soft, Other (mild TTP) Labs Laboratory Tests Test 07/13/18 06:15 07/13/18 20:20 White Blood Count 18.2 x10^3/uL (4.0-11.0) Red Blood Count 3.49 x10^6/uL (3.50-5.40) Hemoglobin 10.4 g/dL (12.0-15.5) Hematocrit 30.8 % (36.0-47.0) Mean Corpuscular Volume 88 fL (79-100) Mean Corpuscular Hemoglobin 30 pg (25-35) Mean Corpuscular Hemoglobin Concent 34 g/dL (31-37) Red Cell Distribution Width 14.8 % (11.5-14.5) Platelet Count 197 x10^3/uL (140-400) Neutrophils (%) (Auto) 85 % (31-73) Lymphocytes (%) (Auto) 12 % (24-48) Monocytes (%) (Auto) 4 % (0-9) Eosinophils (%) (Auto) 0 % (0-3) Basophils (%) (Auto) 0 % (0-3) Neutrophils # (Auto) 15.4 x10^3uL (1.8-7.7) Lymphocytes # (Auto) 2.1 x10^3/uL (1.0-4.8) Monocytes # (Auto) 0.6 x10^3/uL (0.0-1.1) Eosinophils # (Auto) 0.0 x10^3/uL (0.0-0.7) Basophils # (Auto) 0.1 x10^3/uL (0.0-0.2) Lactic Acid Level 0.7 mmol/L (0.4-2.0) Laboratory Tests Test 07/13/18 20:20 Lactic Acid Level 0.7 mmol/L (0.4-2.0) Problem List Problems Medical Problems: (1) Acute appendicitis Status: Acute Assessment/Plan s/p lap appendectomy OOB ADAT recheck labs in Am, if not improved, consider CT ERICA BATRES MD Jul 14, 2018 11:02
[2018-07-14 15:00] VITALS: BP 130/77
[2018-07-14 19:00] VITALS: BP 122/82
[2018-07-14 23:00] VITALS: BP 121/81
[2018-07-15] MEDS: PIPERACILLIN/TAZOBACTAM 3.375 GM in IV DEXTROSE 5% 50 ML IV SCH ×3 (00:14→13:26)
[2018-07-15] MEDS: IV RINGERS,LACTATED 1000ML 1,000 ML IV SCH ×2 (01:56→10:00)
[2018-07-15 03:00] VITALS: BP 123/80
[2018-07-15 04:59] LABS: BASO % 0 % (0-3); EOS # 0.2 x10^3/uL (0.0-0.7); EOS % 2 % (0-3); HEMATOCRIT 29.4 % (36.0-47.0); HEMOGLOBIN 9.9 g/dL (12.0-15.5); LYMPH # 2.1 x10^3/uL (1.0-4.8); LYMPH % 18 % (24-48); MEAN CORPUSCULAR HEMOGLOBIN 30 pg (25-35); MEAN CORPUSCULAR HGB CONC 34 g/dL (31-37); MEAN CORPUSCULAR VOLUME 89 fL (79-100); MONO # 0.7 x10^3/uL (0.0-1.1); MONO % 6 % (0-9); NEUT # 8.8 x10^3uL (1.8-7.7); NEUT % 75 % (31-73); PLATELET COUNT 254 x10^3/uL (140-400); RED BLOOD COUNT 3.32 x10^6/uL (3.50-5.40); RED CELL DISTRIBUTION WIDTH 14.2 % (11.5-14.5); WHITE BLOOD COUNT 11.8 x10^3/uL (4.0-11.0)
[2018-07-15 05:19] LABS: ALBUMIN 2.4 g/dL (3.4-5.0); ALBUMIN/GLOBULIN RATIO 0.7 (1.0-1.7); CALCIUM 8.7 mg/dL (8.5-10.1); CREATININE 0.5 mg/dL (0.6-1.0); GFR 135.3; POTASSIUM 4.1 mmol/L (3.5-5.1); TOTAL BILIRUBIN 0.6 mg/dL (0.2-1.0); TOTAL PROTEIN 5.9 g/dL (6.4-8.2)
[2018-07-15 07:00] VITALS: BP 131/81
[2018-07-15] MEDS: LACTOBACILLUS RHAMNOSUS GG 1 CAPSULE. PO SCH (08:09)
[2018-07-15] MEDS: DOCUSATE SODIUM 100 MG CAPSULE. PO SCH (08:09)
[2018-07-15] MEDS: HEPARIN for SUB-Q USE 5,000 UNIT/ML VIAL. SQ SCH (08:14)
[2018-07-15 11:00] VITALS: BP 115/73
--- NOTE | 2018-07-15 13:26 | PDOC ---
SURGICAL PROGRESS NOTE Subjective feels much better no n/v pain managed Vital Signs Vital Signs Date Time Temp Pulse Resp B/P (MAP) Pulse Ox O2 Delivery O2 Flow Rate FiO2 07/15/18 11:00 98.1 82 16 115/73 (87) 93 Room Air 98.1 07/15/18 08:00 6.0 I&O Intake and Output 07/15/18 07:00 Intake Total 3130 ml Balance 3130 ml Intake Oral 1230 ml IV Total 700 ml Other 1200 ml General: Alert, Oriented X3, Cooperative, No acute distress Abdomen: Soft, Other (lap sites c.d.i, no erythema ) Labs Laboratory Tests Test 07/13/18 20:20 07/15/18 04:30 Lactic Acid Level 0.7 mmol/L (0.4-2.0) White Blood Count 11.8 x10^3/uL (4.0-11.0) Red Blood Count 3.32 x10^6/uL (3.50-5.40) Hemoglobin 9.9 g/dL (12.0-15.5) Hematocrit 29.4 % (36.0-47.0) Mean Corpuscular Volume 89 fL (79-100) Mean Corpuscular Hemoglobin 30 pg (25-35) Mean Corpuscular Hemoglobin Concent 34 g/dL (31-37) Red Cell Distribution Width 14.2 % (11.5-14.5) Platelet Count 254 x10^3/uL (140-400) Neutrophils (%) (Auto) 75 % (31-73) Lymphocytes (%) (Auto) 18 % (24-48) Monocytes (%) (Auto) 6 % (0-9) Eosinophils (%) (Auto) 2 % (0-3) Basophils (%) (Auto) 0 % (0-3) Neutrophils # (Auto) 8.8 x10^3uL (1.8-7.7) Lymphocytes # (Auto) 2.1 x10^3/uL (1.0-4.8) Monocytes # (Auto) 0.7 x10^3/uL (0.0-1.1) Eosinophils # (Auto) 0.2 x10^3/uL (0.0-0.7) Basophils # (Auto) 0.0 x10^3/uL (0.0-0.2) Sodium Level 139 mmol/L (136-145) Potassium Level 4.1 mmol/L (3.5-5.1) Chloride Level 103 mmol/L (98-107) Carbon Dioxide Level 24 mmol/L (21-32) Anion Gap 12 (6-14) Blood Urea Nitrogen 8 mg/dL (7-20) Creatinine 0.5 mg/dL (0.6-1.0) Estimated GFR (Cockcroft-Gault) 135.3 BUN/Creatinine Ratio 16 (6-20) Glucose Level 90 mg/dL (70-99) Calcium Level 8.7 mg/dL (8.5-10.1) Total Bilirubin 0.6 mg/dL (0.2-1.0) Aspartate Amino Transf (AST/SGOT) 19 U/L (15-37) Alanine Aminotransferase (ALT/SGPT) 14 U/L (14-59) Alkaline Phosphatase 64 U/L (46-116) Total Protein 5.9 g/dL (6.4-8.2) Albumin 2.4 g/dL (3.4-5.0) Albumin/Globulin Ratio 0.7 (1.0-1.7) Laboratory Tests Test 07/15/18 04:30 White Blood Count 11.8 x10^3/uL (4.0-11.0) Red Blood Count 3.32 x10^6/uL (3.50-5.40) Hemoglobin 9.9 g/dL (12.0-15.5) Hematocrit 29.4 % (36.0-47.0) Mean Corpuscular Volume 89 fL (79-100) Mean Corpuscular Hemoglobin 30 pg (25-35) Mean Corpuscular Hemoglobin Concent 34 g/dL (31-37) Red Cell Distribution Width 14.2 % (11.5-14.5) Platelet Count 254 x10^3/uL (140-400) Neutrophils (%) (Auto) 75 % (31-73) Lymphocytes (%) (Auto) 18 % (24-48) Monocytes (%) (Auto) 6 % (0-9) Eosinophils (%) (Auto) 2 % (0-3) Basophils (%) (Auto) 0 % (0-3) Neutrophils # (Auto) 8.8 x10^3uL (1.8-7.7) Lymphocytes # (Auto) 2.1 x10^3/uL (1.0-4.8) Monocytes # (Auto) 0.7 x10^3/uL (0.0-1.1) Eosinophils # (Auto) 0.2 x10^3/uL (0.0-0.7) Basophils # (Auto) 0.0 x10^3/uL (0.0-0.2) Sodium Level 139 mmol/L (136-145) Potassium Level 4.1 mmol/L (3.5-5.1) Chloride Level 103 mmol/L (98-107) Carbon Dioxide Level 24 mmol/L (21-32) Anion Gap 12 (6-14) Blood Urea Nitrogen 8 mg/dL (7-20) Creatinine 0.5 mg/dL (0.6-1.0) Estimated GFR (Cockcroft-Gault) 135.3 BUN/Creatinine Ratio 16 (6-20) Glucose Level 90 mg/dL (70-99) Calcium Level 8.7 mg/dL (8.5-10.1) Total Bilirubin 0.6 mg/dL (0.2-1.0) Aspartate Amino Transf (AST/SGOT) 19 U/L (15-37) Alanine Aminotransferase (ALT/SGPT) 14 U/L (14-59) Alkaline Phosphatase 64 U/L (46-116) Total Protein 5.9 g/dL (6.4-8.2) Albumin 2.4 g/dL (3.4-5.0) Albumin/Globulin Ratio 0.7 (1.0-1.7) Problem List Problems Medical Problems: (1) Acute appendicitis Status: Acute Assessment/Plan s/p appy home wbc 11, will send with oral abx ANNELISE MAIN [employer] STOP ATTACHER Jul 15, 2018 13:26
--- NOTE | 2018-07-15 13:28 | DISCH ---
DISCHARGE INSTRUCTIONS Condition on Discharge Condition on Discharge: Stable Activity After Discharge Activity Instructions for Disc: Activity as tolerated Other activity instructions: ok to shower Bathing Instructions: No Tub Bath until see Lifting Instructions after Dis: No heavy lifting, No pulling or pushing (20 lbs ) Driving Instructions after Dis: Do not drive today (no driving while taking pain meds ) Diet after Discharge Diet after Discharge: GI Soft Wound Incision Care Wound/Incision Care: May get incision wet, No wound care needed Contacting the after DC Call your doctor for: Concerns you may have Follow-Up Follow up with: Dr Thomas 1-2 weeks call to schedule [phone] ANNELISE MAIN APRN Jul 15, 2018 13:27
[2018-07-15] MEDS ORDERED: HYDR-2761 PO (13:30)
[2018-07-15] MEDS ORDERED: AMOX1TAB61 PO (13:30)
[2018-07-15] MEDS ORDERED: DOCU-109 PO (13:30)
== END 2018-07-15 15:05 | disposition home or self-care (01) | DRG 340 ==
LOC: ER 05:51 → 4 NORTH 08:10 → OBSVTOIN 15:34
PROVIDERS: ADMIT Surgery; ATTEND Surgery
PROC: 0DTJ4ZZ Resection of Appendix, Percutaneous Endoscopic Approach (ICD-10-PCS; principal; 2018-07-11 15:00)
DX: K35.32 Acute appendicitis with perforation, localized peritonitis, and gangrene, without abscess (principal); Z87.891 Personal history of nicotine dependence
CPT/HCPCS: 36415; 74177; 80053; 81001; 81025; 83605; 83690; 85007; 85025; 87086; 87491; 87591; 88304; A7015; G0378; G0379; J1100; J1644; J1885; J2001; J2250; J2270; J2405; J2543; J2704; J2710; J3010; J3490; J7030; J7040; J7120; Q0111; Q9967